=== PATIENT | female | born 1990 | race Caucasian/White ===

== ENCOUNTER 2017-05-28 21:56 | Inpatient (IN) ==
[2017-05-28] MEDS ORDERED: ACETAMINOPHEN 325 MG TABLET PO PRN (22:08)
[2017-05-28] MEDS ORDERED: MEPERIDINE 50 MG/1 ML VIAL IV PRN (22:08)
[2017-05-28] MEDS ORDERED: ONDANSETRON 4 MG/2 ML VIAL IV PRN (22:08)
[2017-05-28] MEDS ORDERED: BUTORPHANOL 2 MG/ML VIAL IV PRN (22:08)
[2017-05-28 23:09] LABS: Basophils # 0.1 10*3/uL (0.0-0.2); Basophils % 0.3 % (0.0-0.8); Eosinophils % 0.3 % (0.00-10.9); Hematocrit 33.2 VOL% (35.7-47.0); Hemoglobin 11.8 GM/DL (12.0-16.0); Immature Granulocytes % 1.1 %; Immature Granulocytes Absolute 0.17 #; Lymphocytes # 1.6 10*3/uL (1.4-4.0); Lymphocytes % 10.7 % (21.3-54.2); Mean Corpuscular HGB Conc 35.5 GM/DL (32-36); Mean Corpuscular Hemoglobin 29 PG (27-34); Mean Corpuscular Volume 81.6 FL (87-102); Mean Platelet Volume 10.3 FL (9.6-12.0); Monocytes # 0.8 10*3/uL (0.11-0.8); Monocytes % 5.2 % (1.7-12.7); Neutrophils # 12.3 10*3/uL (1.4-7.4); Neutrophils % 82.4 % (38.7-73.9); Platelet Count 232 T/CUMM (130-400); Red Blood Count 4.07 MC/CUMM (3.8-5.5); Red Cell Distribution Width 13.7 % (9.3-17.3); White Blood Count 14.9 T/CUMM (4-12)
[2017-05-29] MEDS: LACTATED RINGERS 1,000 ML IV SCH ×2 (00:20→10:04)
--- NOTE | 2017-05-29 07:19 | OB/GYN History & Physical ---
History of Present Illness Chief complaint: at 40 weeks primigravida admitted for elective induction History of present illness: Ms. Cohn is a 27 year old female 1 para 0 at 40 weeks estimated gestational age admitted for elective induction. Ultrasound estimated weight is 8 lbs. 1 oz. with FIOR of 11.45 and confirmed vertex presentation. Placenta is anterior. She is constantly admitted for Cytotec induction followed by Pitocin. The risks benefits alternatives were explained patient detail and informed consent was obtained for the above procedures. After receiving Cytotec overnight patient's 2 cm dilated she had artificial rupture membranes was noted to be clear [id number]. She is consequently switched over to IV Pitocin. Baseline heart rate is 140s reactive with accelerations and no decelerations. Home Medications Medication Instructions Recorded Confirmed Type Multivitamin () [ 1 tablet PO DAILY 05/28/17 05/28/17 History Vitamin] Allergies Allergy/AdvReac Type Severity Reaction Status Date / Time No Known Allergies Allergy Unverified 05/28/17 22:08 12 point system: reviewed and no additional remarkable complaints except as stated Medical,Surgical,& Family Hx - Medical History HEENT: History of: Dental Problems (oral surgery, jaw broken for surgery) No history of: Ear Problem, Eye Problem, Glaucoma, Oral Cancer, HEENT Problems - Family History Family History: Reports;: Family Diabetes (PGF), Family Hypertension (Dad, PGF, PGM), Family Stroke (PGM) Denies;: Family Anesthesia Reaction, Family Cancer, Family Heart Disease, Family Hematology, Family Psychiatric Problems, Additional Family History - Social History Smoking Status: Never smoker Frequency of Alcohol Use: None Type of Drug Use: None 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 - Constitutional Vitals: Vital Signs Temp Pulse Resp BP Pulse Ox 05/29/17 04:00 97.2 F L 88 20 113/57 05/28/17 21:59 97.7 F 130 H 20 129/77 98 General appearance: over weight - Head Head exam: Present: normal inspection - Neck Neck exam: Present: normal inspection - Respiratory Respiratory exam: Present: clear to auscultation bilaterally - Breast Breasts: as per HPI Menstruation: as per HPI - Cardiovascular Cardiovascular exam: Present: regular rate and rhythm - GI/Abdominal GI/Abdominal exam: Present: normal bowel sounds - Extremities Exam Extremities exam: Present: normal inspection, normal capillary refill - Back Exam Back exam: Present: normal inspection - Neurological Exam Neurological exam: Present: alert, oriented X3 - Psychiatric Psychiatric exam: Present: normal affect, normal mood - Skin Skin exam: Present: normal color, warm Assessment and Plan (1) 40 weeks gestation of Status: Acute Current Visit: Yes Results - Labs CBC & BMP: 05/28/17 22:37
[2017-05-29] MEDS ORDERED: OXYTOCIN/LR 20 UNIT/1,000 ML BAG IV SCH (07:30)
[2017-05-29] MEDS ORDERED: LACTATED RINGERS 1,000 ML IV ONE (08:47)
[2017-05-29] MEDS ORDERED: FAMOTIDINE 20 MG/2 ML VIAL IV ONE (08:47)
[2017-05-29] MEDS ORDERED: CITRIC ACID/SODIUM CITRATE 30 ML UDCUP PO ONE (08:47)
[2017-05-29] MEDS ORDERED: ePHEDrine 50 MG/ML AMP IV PRN (08:47)
[2017-05-29] MEDS ORDERED: PROMETHAZINE 25 MG/1 ML VIAL IM ONE (08:48)
[2017-05-29] MEDS ORDERED: fentaNYL 2 MCG/ROPIV 0.2% EPID 150 ML EPIDURAL SCH (08:48)
[2017-05-29] MEDS ORDERED: hydrOXYzine HCL 25 MG/1 ML VIAL IM PRN (08:48)
[2017-05-29] MEDS ORDERED: LACTATED RINGERS 250 ML IV PRN (08:48)
[2017-05-29] MEDS ORDERED: diphenhydrAMINE 50 MG/1 ML VIAL IV PRN ×2 (08:48)
[2017-05-29 11:34] LABS: Apearance,Urine CLEAR (Clear); Bilirubin,Urine Negative (Negative); Blood, Urine Negative (Negative); Glucose,Urine (UA) Negative (Negative); Ketones,Urine Negative (Negative); Mucus,Urine Occasional /LPF (Occasional); Nitrite,Urine Negative (Negative); Protein,Urine Negative; RBC,Urine 5 /HPF (0-4); Squamous Epithelial Cell,Urine Occasional /HPF (0-10); Urine Color Yellow (Yellow); Urine Specific Gravity 1.024 (1.001-1.035); Urine Urobilinogen < 2.0 EU/DL (0.2-1.0); WBC,Urine 1 /HPF (0-6)
[2017-05-29] MEDS ORDERED: miSOPROStol 200 MCG TABLET ONE (12:18)
[2017-05-29] MEDS ORDERED: METHYLERGONOVINE 0.2 MG/1 ML AMP ONE (12:18)
[2017-05-29] MEDS ORDERED: LIDOCAINE 1% 50 ML VIAL ONE (12:20)
[2017-05-29] MEDS ORDERED: MEASLES/MUMPS/RUBELLA VACCINE 0.5 ML VIAL SUBCUT ONE (13:05)
[2017-05-29] MEDS ORDERED: ACETAMINOPHEN 325 MG TABLET PO PRN (13:05)
[2017-05-29] MEDS ORDERED: BENZOCAINE 20%/MENTHOL 0.5% SPRAY 56 GM CAN TOP PRN (13:05)
[2017-05-29] MEDS ORDERED: HYDROCORTISONE 2.5% RECTAL CREAM 30 GM TUBE TOP PRN (13:05)
[2017-05-29] MEDS ORDERED: OXYTOCIN/LR 20 UNIT/1,000 ML BAG IV ONE (13:05)
[2017-05-29] MEDS ORDERED: LANOLIN 50% CREAM 0.3 OZ TUBE TOP PRN (13:05)
[2017-05-29] MEDS ORDERED: WITCH HAZEL PADS 100/JAR TOP PRN (13:05)
[2017-05-29] MEDS ORDERED: ONDANSETRON 4 MG/2 ML VIAL IV PRN (13:05)
[2017-05-29] MEDS ORDERED: oxyCODONE/ACETAMINOPHEN 5-325 MG TABLET PO PRN ×2 (13:05)
[2017-05-29] MEDS ORDERED: BISACODYL 10 MG SUPP RECTAL PRN (13:05)
[2017-05-29] MEDS ORDERED: RHO(D) IMMUNE GLOBULIN 300 MCG SYRINGE IM ONE (13:05)
[2017-05-29] MEDS ORDERED: DIPH/TET/ACEL PERT BOOSTER VACCINE 0.5 ML VIAL IM ONE (13:05)
--- NOTE | 2017-05-29 13:05 | OB/GYN Progress Note ---
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 Norris dictating vaginal delivery And in LDR environment under sterile conditions, the patient progressed to completely dilated. She was allowed to push and under [epidural] anesthesia had a normal spontaneous vaginal delivery of a live born [male] unweighed Apgars pending over a second-degree midline tear. The infant's nose and oropharynx were bulb and DeLee suctioned, and the had spontaneous cry after delivery. There is a nuchal cord 1 which was easily reduced the cord was doubly clamped and cut and the infant was handed over to the pediatric team for care. Second-degree midline tear was repaired with 2 Monocryl suture in usual fashion under epidural anesthesia without complication with 2-0 Monocryl suture cord blood was obtained the placenta delivered spontaneously intact and IV Pitocin was done. There were no cervical tears. There were no periurethral tears. Estimated blood loss was 250 mL. There were no complications. The bladder was emptied using a catheter prior to delivery. All sponge needle and instrument counts were correct -3 at the end of the delivery. 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
[2017-05-29] MEDS: IBUPROFEN 800 MG TABLET PO PRN (18:56)
--- NOTE | 2017-05-29 19:25 | Anesthesia Post-Op ---
Anesthesia Post OP - Post Ansesthetic Evaluation Patient seen in post op: Yes Resp: within normal limits CV: within normal limits Mental: within normal limits Temp: within normal limits [id number]: within normal limits Nausea and Vomiting: within normal limits Pain: within normal limits
[2017-05-29] MEDS: DOCUSATE SODIUM 100 MG CAPSULE PO SCH (20:47)
[2017-05-30 07:21] LABS: Basophils % 0.2 % (0.0-0.8); Eosinophils # 0.1 10*3/uL (0.0-0.87); Eosinophils % 0.5 % (0.00-10.9); Hematocrit 22.2 VOL% (35.7-47.0); Immature Granulocytes % 1.4 %; Immature Granulocytes Absolute 0.17 #; Lymphocytes # 1.3 10*3/uL (1.4-4.0); Lymphocytes % 10.5 % (21.3-54.2); Mean Corpuscular HGB Conc 34.2 GM/DL (32-36); Mean Corpuscular Hemoglobin 28 PG (27-34); Mean Corpuscular Volume 82.5 FL (87-102); Mean Platelet Volume 9.6 FL (9.6-12.0); Monocytes # 0.7 10*3/uL (0.11-0.8); Monocytes % 5.8 % (1.7-12.7); Neutrophils # 10.1 10*3/uL (1.4-7.4); Neutrophils % 81.6 % (38.7-73.9); Red Cell Distribution Width 14.1 % (9.3-17.3); White Blood Count 12.4 T/CUMM (4-12)
[2017-05-30 07:26] LABS: Hemoglobin 7.6 GM/DL (12.0-16.0); Red Blood Count 2.69 MC/CUMM (3.8-5.5)
[2017-05-30 07:27] LABS: Platelet Count 141 T/CUMM (130-400)
[2017-05-30] MEDS: FERROUS SULFATE 325 MG TABLET PO SCH ×2 (08:43→21:59)
[2017-05-30] MEDS: IBUPROFEN 800 MG TABLET PO PRN ×2 (08:43→14:28)
[2017-05-30] MEDS: DOCUSATE SODIUM 100 MG CAPSULE PO SCH ×2 (08:43→21:59)
[2017-05-30] MEDS: MULTIVITAMIN (PRENATAL) TABLET PO SCH (08:43)
--- NOTE | 2017-05-30 09:57 | OB/GYN Progress Note ---
Assessment and Plan (1) 40 weeks gestation of Status: Acute Current Visit: Yes CUTTER HAND - PN: Subj Interval history: Patient is doing well she is eating ambulating and voiding She is afebrile and her vital signs are stable Her fundus is firm and contracted She has decreased lochia Assessment #1 day #1 doing well Plan continue present management with expected DC tomorrow Exam CUTTER HAND - Constitutional Vitals: Vital Signs Temp Pulse Resp BP Pulse Ox 05/30/17 07:46 97.4 F L 114 H 18 99/58 97 05/30/17 06:48 19 05/30/17 06:00 18 05/30/17 05:00 18 05/30/17 04:00 97.6 F 102 H 18 96/50 98 05/30/17 03:00 18 05/30/17 00:00 97.6 F 103 H 18 100/51 98 05/29/17 20:00 98.5 F 102 H 19 111/59 99 05/29/17 18:15 110 H 20 121/63 99 05/29/17 17:15 118 H 20 126/66 99 05/29/17 16:45 118 H 20 119/69 97 05/29/17 16:15 97.6 F 105 H 20 120/68 97 05/29/17 12:00 97.6 F 90 18 118/59 05/29/17 10:00 97.0 F L Results - Labs CBC & BMP: 05/30/17 07:13
[2017-05-31 07:15] VITALS: BP 90/53
--- NOTE | 2017-05-31 08:25 | Discharge Summary ---
Hospital Course - Hospital Course Hospital Course: the patient did well. She had quick return of bowel and bladder function management afebrile and normotensive throughout her hospitalization. She is constantly discharged on day #2 Diagnosis - Discharge Diagnosis (1) 40 weeks gestation of Status: Acute Specialty Discharge - Follow Up or Referrals Follow up with: Flo Norris MD [Primary Care Provider] - Discharge Plan - Discharge Data Disposition: Disch To Home/Self Care Condition at Discharge: Stable Discharge Diet: regular diet Activity: increase activity as tolerated, other (Pelvic rest) Hygiene: may shower Weight Bearing at Discharge: full weight bearing Driving: no restrictions Contact your physician if you experience:: fever over 101, Difficulty voiding, Redness or swelling, Nausea/Vomiting, Shortness of breath, Bleeding, pain uncontrolled by pain medications - Discharge Medications New Acetaminophen Tab [Tylenol Tab] 650 mg PO Q6H PRN tablet PRN Reason: Fever > 100.4 Or Headache Ferrous Sulfate Tab [Feosol Original Tab] 325 mg PO BID tablet HYDROcodone/ACETAMIN 5-325 [[place] 5-325] 1 tablet PO Q4H PRN #15 tablet PRN Reason: Abdominal Pain Hydrocortisone 2.5% Rectal Cr [Anusol HC Cream] 1 applic TOP QID PRN applic PRN Reason: Hemorrhoids Witch Ana Pads [Tucks Pads] 1 applic TOP Q4H PRN applic PRN Reason: Hemorrhoids Ibuprofen Tab [Motrin Tab] 800 mg PO Q6H PRN tablet PRN Reason: Pain Moderate (4-7) Continue Multivitamin () [ Vitamin] 1 tablet PO DAILY - Follow Up or Referral Follow Up: Flo Norris MD [Primary Care Provider] - 2 Weeks - Forms/Instructions Instructions: Depression (GEN), Perineal Care (DC), Vaginal Delivery (DC), Bleeding (DC) Exam - Constitutional Vitals: Period Temp Pulse Resp BP Sys/Early Pulse Ox Last 24 Hr 96.8 F-98.8 F 106-120 18-20 90-134/53-72 98-99 DS: Provider Date of admission: 05/28/17 22:08 Primary care physician: Marky Hall Attending physician on admission: Marky Hall Consults: 05/28/17 22:08 Consult to Anesthesiology [CONS] Routine Consulting Provider: Reason for Anesthesiology: Epidural Consult Comment: Epidural for pain managment 05/29/17 13:05 Consult to Lock Installer [CONS] Routine Consult Lock Installer: Breast Feeding Discharging clinician: Marky Hall Expected date of discharge: 06/07/17
[2017-05-31] MEDS: DOCUSATE SODIUM 100 MG CAPSULE PO SCH (08:49)
[2017-05-31] MEDS: MULTIVITAMIN (PRENATAL) TABLET PO SCH (08:49)
[2017-05-31] MEDS: FERROUS SULFATE 325 MG TABLET PO SCH (08:49)
== END 2017-05-31 13:30 | disposition home or self-care (01) | DRG 775 ==
LOC: N.LD 21:56 → N.OB 05-29 16:10
PROVIDERS: ADMIT Specialist; ATTEND Specialist

== ENCOUNTER 2020-02-24 03:21 | Inpatient (IN) ==
[2020-02-24] MEDS ORDERED: LACTATED RINGERS 1,000 ML IV ONE (03:35)
[2020-02-24] MEDS ORDERED: ONDANSETRON 4 MG/2 ML VIAL IV PRN ×2 (03:35→07:23)
[2020-02-24] MEDS ORDERED: ePHEDrine 50 MG/ML AMP IV PRN (03:51)
[2020-02-24] MEDS ORDERED: CITRIC ACID/SODIUM CITRATE 30 ML UDCUP PO ONE (03:51)
[2020-02-24] MEDS ORDERED: FAMOTIDINE 20 MG/2 ML VIAL IV ONE (03:51)
[2020-02-24] MEDS ORDERED: LACTATED RINGERS 250 ML IV PRN (03:51)
[2020-02-24] MEDS ORDERED: ONDANSETRON 4 MG/2 ML VIAL IV ONE (03:51)
[2020-02-24] MEDS ORDERED: hydrOXYzine HCL 25 MG/1 ML VIAL IM PRN (03:51)
[2020-02-24] MEDS ORDERED: NALOXONE 0.4 MG/ML VIAL IV PRN (03:51)
[2020-02-24] MEDS ORDERED: PROMETHAZINE 25 MG/1 ML VIAL IM ONE (03:51)
[2020-02-24] MEDS ORDERED: diphenhydrAMINE 50 MG/1 ML VIAL IV PRN ×2 (03:51)
[2020-02-24] MEDS ORDERED: LACTATED RINGERS 1,000 ML IV SCH (04:00)
[2020-02-24] MEDS ORDERED: fentaNYL 2 MCG/ROPIV 0.2% EPID 100 ML EPIDURAL SCH (04:00)
[2020-02-24 04:10] LABS: Basophils % 0.3 % (0.0-0.8); Eosinophils # 0.1 10*3/uL (0.0-0.87); Eosinophils % 0.7 % (0.00-10.9); Hematocrit 32.5 VOL% (35.7-47.0); Hemoglobin 10.4 GM/DL (12.0-16.0); Immature Granulocytes % 0.7 %; Immature Granulocytes Absolute 0.08 #; Lymphocytes # 1.5 10*3/uL (1.4-4.0); Lymphocytes % 13.7 % (21.3-54.2); Mean Corpuscular Volume 81.7 FL (87-102); Mean Platelet Volume 9.9 FL (9.6-12.0); Neutrophils % 77.6 % (38.7-73.9); Platelet Count 222 T/CUMM (130-400); Red Blood Count 3.98 MC/CUMM (3.8-5.5); Red Cell Distribution Width 13.8 % (9.3-17.3); White Blood Count 10.7 T/CUMM (4-12)
[2020-02-24 04:31] LABS: Alanine Aminotransferase 18 U/L (13-56); Albumin 2.6 G/DL (3.4-5.0); Alkaline Phosphatase 104 U/L (45-117); Aspartate Amino Transferase 21 U/L (0-37); Bilirubin,Total < 0.39 MG/DL (0.2-1.0); Blood Urea Nitrogen 14 MG/DL (7-18); Calcium 8.7 MG/DL (8.5-10.1); Estimated Glom Filtration Rate 148 ML/MIN; Glucose 92 MG/DL (74-106); Total Protein 6.3 G/DL (6.4-8.3)
[2020-02-24] MEDS: LACTATED RINGERS 1,000 ML IV SCH ×2 (04:41→05:41)
[2020-02-24] MEDS ORDERED: OXYTOCIN/LR 20 UNIT/1,000 ML BAG IV ONE ×3 (05:53→07:23)
[2020-02-24] MEDS ORDERED: OXYTOCIN/LR 20 UNIT/1,000 ML BAG IV SCH (06:00)
[2020-02-24] MEDS ORDERED: miSOPROStoL 200 MCG TABLET ONE (07:05)
[2020-02-24] MEDS ORDERED: TRANEXAMIC ACID 1,000 MG/10 ML VIAL ONE (07:05)
[2020-02-24] MEDS ORDERED: METHYLERGONOVINE 0.2 MG/1 ML AMP ONE (07:06)
[2020-02-24] MEDS ORDERED: CARBOPROST TROMETHAMINE 250 MCG/ML AMP IM ONE (07:06)
[2020-02-24] MEDS ORDERED: SODIUM CHLORIDE 0.9% 0 ML IV ONE (07:07)
[2020-02-24] MEDS ORDERED: oxyCODONE/ACETAMINOPHEN 5-325 MG TABLET PO PRN ×2 (07:23)
[2020-02-24] MEDS ORDERED: BISACODYL 10 MG SUPP RECTAL PRN (07:23)
[2020-02-24] MEDS ORDERED: RHO(D) IMMUNE GLOBULIN 300 MCG SYRINGE IM ONE (07:23)
[2020-02-24] MEDS ORDERED: WITCH HAZEL PADS 100/JAR TOP PRN (07:23)
[2020-02-24] MEDS ORDERED: DIPH/TET/ACEL PERT BOOSTER VACCINE 0.5 ML VIAL IM ONE (07:23)
[2020-02-24] MEDS ORDERED: LANOLIN 50% CREAM 0.3 OZ TUBE TOP PRN (07:23)
[2020-02-24] MEDS ORDERED: IBUPROFEN 800 MG TABLET PO PRN (07:23)
[2020-02-24] MEDS ORDERED: ACETAMINOPHEN 325 MG TABLET PO PRN (07:23)
[2020-02-24] MEDS ORDERED: MEASLES/MUMPS/RUBELLA VACCINE 0.5 ML VIAL SUBCUT ONE (07:23)
[2020-02-24] MEDS ORDERED: BENZOCAINE 20%/MENTHOL 0.5% SPRAY 56 GM CAN TOP PRN (07:23)
[2020-02-24] MEDS ORDERED: HYDROCORTISONE 2.5% RECTAL CREAM 30 GM TUBE TOP PRN (07:23)
[2020-02-24] MEDS: DOCUSATE SODIUM 100 MG CAPSULE PO SCH (21:28)
[2020-02-25 03:10] LABS: Basophils % 0.4 % (0.0-0.8); Eosinophils # 0.1 10*3/uL (0.0-0.87); Eosinophils % 1.1 % (0.00-10.9); Hematocrit 31.4 VOL% (35.7-47.0); Hemoglobin 10.4 GM/DL (12.0-16.0); Immature Granulocytes % 0.6 %; Immature Granulocytes Absolute 0.07 #; Lymphocytes # 2.2 10*3/uL (1.4-4.0); Lymphocytes % 19.5 % (21.3-54.2); Mean Corpuscular HGB Conc 33.1 GM/DL (32-36); Mean Corpuscular Volume 80.1 FL (87-102); Mean Platelet Volume 10.6 FL (9.6-12.0); Monocytes % 6.5 % (1.7-12.7); Neutrophils % 71.9 % (38.7-73.9); Platelet Count 193 T/CUMM (130-400); Red Blood Count 3.92 MC/CUMM (3.8-5.5); Red Cell Distribution Width 13.9 % (9.3-17.3); White Blood Count 11.3 T/CUMM (4-12)
[2020-02-25] MEDS: DOCUSATE SODIUM 100 MG CAPSULE PO SCH ×2 (08:33→21:30)
[2020-02-26 07:10] VITALS: BP 108/72
[2020-02-26] MEDS: DOCUSATE SODIUM 100 MG CAPSULE PO SCH (08:38)
== END 2020-02-26 13:35 | disposition home or self-care (01) | DRG 806 ==
LOC: N.LDOUT 03:21 → N.LD 03:25 → N.OB 11:20
PROVIDERS: ADMIT Specialist; ATTEND Specialist